=== PATIENT | female | born 1995 | race Caucasian/White ===

== ENCOUNTER 2016-11-03 18:22 | Emergency (ER) | payer OTHER ==
[~2016-11-03] VITALS: Ht 170.2 cm; Wt 92.3 kg
[2016-11-03 18:26] VITALS: BP 128/87; PULSE 111; RESP 17; O2SAT 98
[2016-11-03 19:08] VITALS: BP 138/81; PULSE 102; RESP 18; O2SAT 95
--- NOTE | 2016-11-03 19:28 | ED.REPORT ---
HPI-General Illness Date of Service Nov 03, 2016 ED Provider: Efren Carrillo MD Pt is a 20 year old female with a history of pneumonia and pleurisy who presents to the ED complaining of chest pain. The pt began experiencing chest pain and back pain five days ago, in addition to a cough. The cough has since resolved. The pt also reports a fever last night, but states that this has resolved as well. The pain is exacerbated by movement. The pt has not yet been seen for these symptoms. She has experienced similar symptoms before and was diagnosed with pneumonia and pleurisy at that time. Nursing Notes Stated Complaint: BACK & CHEST PAIN, TROUBLE BREATHING AT NIGHT Chief Complaint: Respiratory Distress Nursing Notes Reviewed: Yes Allergies: Coded Allergies: tetanus and diphtheria toxoids (Verified Allergy, Severe, Anaphylaxis, ) Scheduled PRN Benzonatate (Tessalon Perle) 100 Mg Capsule 100 MG PO TID PRN PRN For Cough General Time Seen by MD: 18:59 Chief Complaint Chest pain Hx Obtained From: Patient Arrived By: Walk-in Sudden in Onset?: No Onset Occurred: 5 days ago Symptom Duration: Since onset Recent Healthcare: No recent hospitalization, Recent doctor visit Similar Sx Previous: Yes Past Medical History Past Medical History pneumonia pleurisy Past Surgical History none reported Smoking History Never Smoker Ambulatory Status Independent Review of Systems Full Review of Systems Constitutional: Reports: Fever (resolved) Respiratory: Reports: Non-productive cough (resolved) Cardiovascular: Reports: Chest pain GI: Denies: Abdominal pain, Diarrhea, Nausea, Vomiting Musculoskeletal: Reports: Back pain, Denies: Neck pain Skin: Denies Rash Complete sys rev & neg: except as marked. Physical Exam Vital Signs Vital Signs Date Time Temp Pulse Resp B/P Pulse Ox O2 Delivery O2 Flow Rate FiO2 11/03/16 21:51 37.1 97 18 124/75 100 Room Air 11/03/16 20:59 97 18 124/75 100 Room Air 11/03/16 19:08 102 18 138/81 95 Room Air 11/03/16 18:26 37.1 111 17 128/87 98 Room Air Initial VS: Reviewed General/Constitutional: Awake, Alert Head / Eyes: Atraumatic, Normocephalic, PERRL, EOMI ENT: Atraumatic, Airway patent, Mucous membranes moist Neck: Atraumatic, Supple, Full range of motion Respiratory / Chest: Atraumatic, Breath sounds NL, Breath sounds = bilat, No respiratory distress, No wheezing no crackles reproducible tenderness with palpation of the right lateral chest wall Cardiovascular: Heart rate NL, Regular rhythm, Heart sounds NL, No gallop, No murmurs, No rubs Abdomen: Atraumatic, Soft, Non-tender, No distention Back: Atraumatic, Full range of motion Upper Extremities Upper Extremity / MS: Atraumatic, Full range of motion Lower Extremity / Pelvis / MS: Atraumatic, Full range of motion no calf tenderness or swelling Skin: Atraumatic, Color NL, No rash, Warm, Dry Neurologic: Oriented X3, Speech NL, No motor deficits, No sensory deficits Psychiatric: Affect NL, Mood NL Interpretation & Diagnostics Lab Results Interpretation Test 11/03/16 21:04 11/03/16 21:18 Hold Urine Received (Received) Hold Purple Top Tube Received (Received) Hold Blue Top Tube Received (Received) Hold [place] Top Tube Received (Received) Hold [place] Top Tube Received (Received) ECG Interpretation ECG Interpretation: sinus tachycardia with a rate of 104 normal axis normal interval no ST segment changes no T wave abnormalities compared with prior dated 10/15/2015 now tachycardic, no other changes Time: 19:10 Interpreted by: ED physician X-Ray Chest Interpretation Chest Xray Interpretation: IMPRESSION: No acute or active disease is found in the two-view chest. Dictated by: Stalin Ramirez M.D. on 11/03/2016 at 20:17 Approved by: Stalin Ramirez M.D. on 11/03/2016 at 20:18 Interpretation / Wet Read by: Interpret - Radiologist Re-Eval/Medical Decision Med Decision/Clinical Course Patient presents with chest wall discomfort in the setting of recent cough and febrile illness. On examination the patient is afebrile with stable vital signs and reproducible tenderness to her right lateral chest wall. EKG: sinus tachycardia with a rate of 104 normal axis normal interval no ST segment changes no T wave abnormalities compared with prior dated 10/15/2015 now tachycardic, no other changes CXR: Obtained, reviewed and interpreted by myself shows no evidence of infiltrates, effusions or pneumothorax. Cardiac and mediastinal silhouette normal. No bony or soft tissue abnormalities. Overall presentation was consistent with musculoskeletal chest pain in the setting of recent cough. No evidence of bacterial pneumonia. Presentation not suggestive of acute coronary syndrome in this otherwise healthy young female. No major risk factors for pulmonary embolism and presentation not suggestive thereof. There may be a component of pleurisy related to recent viral illness. Patient treated with Tessalon and ibuprofen. She has been prescribed these medications. Prior to discharge follow-up and return precautions were reviewed in detail with the patient who verbalized understanding and agreement with the plan. The patient was discharged in stable condition. Source of Hx: Old records Time of Eval: 21:48 Patient Status: Condition improved Re-Evaluation/Progress Note: Pt rechecked, who is comfortable. The diagnosis and plan for discharge are discussed. The pt understands and agrees with the plan. All questions are addressed at this time. Counseled Regarding: Diagnosis, Lab results, Need for follow-up, When/why to return to ED Discharge & Departure Primary Impression: Chest wall pain Additional Impressions: Pleurisy Cough Disposition: Home Discharge Condition All VS Reviewed: Yes Condition: Stable Patient Instructions: Chest Wall Pain (ED) Additional Instructions: Thank you for seeking care at the emergency room. It is difficult for us to make definitive diagnoses in the ED but we believe that you are experiencing muscle pain from coughing. Our primary goal today in the ED was to evaluate you for any life-threatening conditions. Your evaluation was reassuring. You will be discharged with a prescription for Tessalon for cough symptoms, you may take ibuprofen 400 mg 3 times a day for up to one week for pain. You should follow-up with your primary doctor in the next week. You should return to the ED immediately if you develop worsening symptoms, fevers, vomiting, cough, shortness of breath, chest pain, lightheadedness, weakness or any other concerning signs or symptoms. Thank you for letting us partake in your care today. Referrals: Libby Castanon PA-C (PCP) Scribe Attestation Portions of this note were transcribed by Jakob Durham. I, Dr. Carrillo personally performed the history, physical exam and medical decision-making; I reviewed and confirmed the accuracy of the information in the transcribed note. copies to: Libby Castanon PA-C, Beck O MD Nov 03, 2016 19:28 JAKOB DURHAM Nov 03, 2016 19:43
--- NOTE | 2016-11-03 20:19 | DRSVH ---
PROCEDURE: X-RAY CHEST, TWO VIEWS ([id number]) INDICATIONS: cough TECHNIQUE: 2 views of the chest were acquired. COMPARISON: [facility], CR, XR CHEST 2VW, 10/15/2015, 22:56. FINDINGS: Surgical changes and devices: None. Lungs and pleura: No pleural effusions or pneumothorax. Lungs are clear. Mediastinum: Mediastinal contours are normal. Heart size is normal. Bones and chest wall: No suspicious bony abnormalities. Soft tissues appear unremarkable. IMPRESSION: No acute or active disease is found in the two-view chest. Dictated by: Stalin Ramirez M.D. on 11/03/2016 at 20:17 Approved by: Stalin Ramirez M.D. on 11/03/2016 at 20:18
[2016-11-03 20:59] VITALS: BP 124/75; PULSE 97; RESP 18; O2SAT 100
[2016-11-03] MEDS ORDERED: BENZ-12 PO (21:23)
[2016-11-03 21:51] VITALS: BP 124/75; PULSE 97; RESP 18; O2SAT 100
== END 2016-11-03 21:52 | disposition home or self-care (01) ==
LOC: SED 18:22
DX: R07.89 Other chest pain (principal); R09.1 Pleurisy; R05 Cough; Z88.7 Allergy status to serum and vaccine